=== PATIENT | male | born 1985 | race American Indian/Alaskan Native ===

== ENCOUNTER 2017-10-03 11:02 | Emergency (ER) | payer SELFPAY ==
[2017-10-03] MEDS ORDERED: ZOFRAN ONE (11:16)
[2017-10-03] MEDS ORDERED: TORADOL ONE (11:16)
[2017-10-03] MEDS ORDERED: SUBLIMAZE ONE (11:16)
[2017-10-03] MEDS ORDERED: TORADOL IV ONE (11:18)
[2017-10-03] MEDS ORDERED: SUBLIMAZE IV ONE ×2 (11:18→12:00)
[2017-10-03] MEDS ORDERED: ZOFRAN IV ONE (11:18)
--- NOTE | 2017-10-03 11:28 | Emergency Department Report ---
HPI - General Chief Complaint: Extremity Injury, Upper Time Seen by Provider: 10/03/17 11:16 - HPI HPI: Room 21 The patient is a 32-year-old male presenting with a chief complaint of right shoulder pain. The patient states he fell backwards and tried to break his fall by putting his arms back and his right shoulder popped out of place. The patient states his right shoulder has been dislocated several times in the past. The patient gets his pain_10/10. The patient states he has not eaten or drank anything today. Location: Right shoulder Duration: Just prior to arrival Quality: Pain Severity: 11/27 Modifying factors: [see above] Context: [see above] Mode of transportation: [not driving] ED Past Medical Hx - Past Medical History Previous Medical History?: No - Surgical History Past Surgical History?: Yes Additional Surgical History: plate left hip, terrie right femur - Family History Family history: no significant - Social History Smoking Status: Current Every Day Smoker (1/2 pack per day) Substance Use Type: None (denies illicit drug use) - Medications Home Medications: Home Medications Medication Instructions Recorded Confirmed Last Taken Type Cyclobenzaprine [Flexeril] 10 mg PO TID PRN #14 tablet 10/03/17 Unknown Rx HYDROcodone/APAP 5-325 [Dearborn 1 each PO Q6HR PRN #10 tablet 10/03/17 Unknown Rx 5/325] Ibuprofen [Motrin 800 MG tab] 800 mg PO Q8HR PRN #20 tablet 10/03/17 Unknown Rx ED Review of Systems ROS: Stated complaint: RIGHT SHOULDER DISLOCATED Other details as noted in HPI Musculoskeletal: arthralgia, myalgia Physical Exam - Physical Exam Physical Exam: GENERAL: The patient is well-developed well-nourished male sitting on stretcher with obvious right shoulder deformity appeared to be in moderate discomfort. [] HEENT: Normocephalic. Atraumatic. Extraocular motions are intact. Patient has moist mucous membranes. NECK: Supple. Trachea midline CHEST/LUNGS: Clear to auscultation. There is no respiratory distress noted. HEART/CARDIOVASCULAR: Regular. There is no tachycardia. There is no gallop rub or murmur. ABDOMEN: Abdomen is soft, nontender. Patient has normal bowel sounds. There is no abdominal distention. SKIN: There is no rash. There is no edema. There is no diaphoresis. NEURO: The patient is awake, alert, and oriented. The patient is cooperative. The patient has no focal neurologic deficits. The patient has normal speech. Normal sensation to the dorsum of the right hand and the right shoulder. Patient able to move fingers without difficulty. MUSCULOSKELETAL: There is obvious deformity of the right shoulder - Orthopedic Joint Reduction Joint #1 Consent Obtained: verbal consent Time Out Performed: Yes Side: right Joint Reduction Location: shoulder Analgesia: moderate sedation Shoulder Technique Used (if applicable): other (modified Mari) Technique Used: traction/counter-traction Post-Reduction Neuro Exam: intact Post-Reduction Vascular Exam: intact Post Reduction X-Ray Obtained: Yes Post Reduction X-Ray Results: reduced Splint Applied: Yes (shoulder immobilizer) Patient Tolerated Procedure: well ED Medical Decision Making - Radiology Data Radiology results: image reviewed (right shoulder x-ray #1, right shoulder x- ray #2) interpreted by me: Right shoulder x-ray #1-humeral head dislocation. No fracture Right shoulder x-ray #2-dislocation resolved. No fracture - Differential Diagnosis shoulder dislocation, humerus fracture Critical care attestation.: If time is entered above; I have spent that time in minutes in the direct care of this critically ill patient, excluding procedure time. ED Disposition Clinical Impression: Anterior dislocation of right shoulder, Acute shoulder pain Disposition: TO HOME OR SELFCARE Is pt being admited?: No Does the pt Need Aspirin: No Condition: Stable Instructions: Shoulder Dislocation (ED) Additional Instructions: Return to the emergency department immediately should you develop worsening symptoms, fever, inability to tolerate food or liquid or any other concerns. Prescriptions: Cyclobenzaprine [Flexeril] 10 mg PO TID PRN #14 tablet PRN Reason: Muscle Spasm HYDROcodone/APAP 5-325 [Dearborn 5/325] 1 each PO Q6HR PRN #10 tablet PRN Reason: Pain Ibuprofen [Motrin 800 MG tab] 800 mg PO Q8HR PRN #20 tablet PRN Reason: Pain, Moderate (4-6) Referrals: YOHAN SINGH MD [Staff Physician] - 3-5 Days (Dr. Singh is an orthopedic surgeon. Please follow up with him for further evaluation) Time of Disposition: 12:01
[2017-10-03] MEDS ORDERED: AMIDATE IV ONE ×2 (11:33→12:04)
--- NOTE | 2017-10-03 12:00 | XRay Report ---
RIGHT SHOULDER, 3 VIEWS: HISTORY: Pain after fall. An anterior, inferior dislocation is identified at the right glenohumeral joint. No obvious fracture. The remainder of the examination is within normal limits. IMPRESSION: Right shoulder dislocation.
--- NOTE | 2017-10-03 12:01 | XRay Report ---
RIGHT SHOULDER, ONE VIEW History: Postreduction film. Findings: The right shoulder dislocation has been reduced since earlier today at 1123 hrs. Alignment is anatomic. No obvious fracture on single view. Impression: Anatomic alignment at the right shoulder.
[2017-10-03 12:27] VITALS: BP 150/102
== END 2017-10-03 12:45 | disposition home or self-care (01) ==
LOC: ED 11:02
DX: S43.004A Unspecified dislocation of right shoulder joint, initial encounter (principal); F17.200 Nicotine dependence, unspecified, uncomplicated; Z91.041 Radiographic dye allergy status; W19.XXXA Unspecified fall, initial encounter; Y93.89 Activity, other specified; Y99.8 Other external cause status; Y92.89 Other specified places as the place of occurrence of the external cause
CPT/HCPCS: 23650; 29105; 73020; 73030; 96374; 96375; 96376; 99284; J1885; J2405; J3010

== ENCOUNTER 2020-01-12 05:10 | Emergency (ER) | payer SELFPAY ==
[2020-01-12] MEDS ORDERED: ONDANSETRON 4 MG/2 ML INJ IV ONE ×2 (05:43→07:28)
[2020-01-12] MEDS ORDERED: MORPHINE 4 MG/1 ML INJ IV ONE (05:43)
[2020-01-12] MEDS ORDERED: SODIUM CHLORIDE 0.9% 1000 ML 1,000 ML IV ONE (05:43)
--- NOTE | 2020-01-12 05:53 | Emergency Department Report ---
<MEGHNA ROLDAN - Last Filed: 01/12/20 05:50> ED Abdominal Pain HPI - General Chief Complaint: Abdominal Pain Stated Complaint: ABD PAIN Time Seen by Provider: 01/12/20 05:33 Source: patient, EMS Mode of arrival: Ambulatory Limitations: No Limitations - History of Present Illness Initial Comments: Patient is a 34-year-old male presents emergency room with complaints of upper abdominal pain that began just prior to arrival. He states the pain is a sharp stabbing pain. He has associated nausea, vomiting, diarrhea, chills. He denies any dysuria, hematochezia, hematemesis, melena, pain or swelling in the testicles. He denies any past medical history. He denies any allergies to medications. He denies any iodine allergy. He endorses tobacco use. He states he occasionally drinks alcohol. He denies marijuana use. He denies any other drug use. He states that the last thing he ate was a sloppy Curtis. Denies any sick contacts or anyone else getting sick after eating. - Related Data Previous Rx's Medication Instructions Recorded Last Taken Type Cyclobenzaprine [Flexeril] 10 mg PO TID PRN #14 tablet 10/03/17 Unknown Rx Ibuprofen [Motrin 800 MG tab] 800 mg PO Q8HR PRN #20 tablet 10/03/17 Unknown Rx Famotidine [Pepcid] 40 mg PO QHS #30 tablet 01/12/20 Unknown Rx HYDROcodone/APAP 5-325 [[place]ster 1 each PO Q6HR PRN #10 tablet 01/12/20 Unknown Rx 5-325 mg TAB] Ondansetron [Zofran Odt] 4 mg PO Q8HR PRN #15 tab.rapdis 01/12/20 Unknown Rx Allergies Allergy/AdvReac Type Severity Reaction Status Date / Time iodine Allergy Rash Verified 10/03/17 11:13 ED Review of Systems Comment: All other systems reviewed and negative ED Past Medical Hx - Past Medical History Previous Medical History?: No - Surgical History Additional Surgical History: plate left hip, terrie right femur - Social History Smoking Status: Current Every Day Smoker Substance Use Type: None - Medications Home Medications: Home Medications Medication Instructions Recorded Confirmed Last Taken Type Cyclobenzaprine [Flexeril] 10 mg PO TID PRN #14 tablet 08/16/18 Unknown Rx Ibuprofen [Motrin 800 MG tab] 800 mg PO Q8HR PRN #20 tablet 10/03/17 Unknown Rx Famotidine [Pepcid] 40 mg PO QHS #30 tablet 01/12/20 Unknown Rx HYDROcodone/APAP 5-325 [[place] 1 each PO Q6HR PRN #10 tablet 01/12/20 Unknown Rx 5-325 mg TAB] Ondansetron [Zofran Odt] 4 mg PO Q8HR PRN #15 tab.rapdis 01/12/20 Unknown Rx ED Physical Exam - General Limitations: No Limitations General appearance: alert, other (in moderate distress secondary to pain) - Head Head exam: Present: atraumatic, normocephalic - Eye Eye exam: Present: normal appearance - ENT ENT exam: Present: mucous membranes dry - Respiratory Respiratory exam: Present: normal lung sounds bilaterally. Absent: respiratory distress, wheezes, rales, rhonchi, stridor, chest wall tenderness, accessory muscle use, decreased breath sounds, prolonged expiratory - Cardiovascular Cardiovascular Exam: Present: regular rate, normal rhythm, normal heart sounds. Absent: systolic murmur, diastolic murmur, rubs, gallop - GI/Abdominal GI/Abdominal exam: Present: soft, tenderness (generalized upper), guarding (voluntary), normal bowel sounds. Absent: distended, rebound, rigid - Neurological Exam Neurological exam: Present: alert, oriented X3 - Psychiatric Psychiatric exam: Present: normal affect, normal mood - Skin Skin exam: Present: warm, dry, intact ED Disposition Clinical Impression: Upper abdominal pain, Leukocytosis, Gastritis Disposition: - TO HOME OR SELFCARE Condition: Stable Instructions: Gastritis, Adult, [id number], Abdominal Pain, Adult, [id number] Additional Instructions: Take the pepcid, norco and zofran as prescribed. Recommend close follow-up with your primary care doctor will be given to you on your discharge instructions if you do not already have 1. Return to the ER if your pain worsens, especially if it localizes to your right lower abdomen, with associated fever. Prescriptions: Famotidine [Pepcid] 40 mg PO QHS #30 tablet HYDROcodone/APAP 5-325 [Chester 5-325 mg TAB] 1 each PO Q6HR PRN #10 tablet PRN Reason: Pain Ondansetron [Zofran Odt] 4 mg PO Q8HR PRN #15 tab.rapdis PRN Reason: Vomiting Referrals: LUPIS HAYNES MD [Staff Physician] - 3-5 Days <MERVAT JAIME - Last Filed: 01/12/20 13:38> ED Review of Systems ROS: Stated complaint: ABD PAIN Other details as noted in HPI ED Course Vital Signs 01/12/20 01/12/20 01/12/20 05:20 07:01 07:40 Temperature 97.4 F L Pulse Rate 99 H Respiratory 18 18 18 Rate Blood Pressure 135/71 O2 Sat by Pulse 100 Oximetry 01/12/20 01/12/20 10:02 11:31 Temperature Pulse Rate 82 Respiratory 18 14 Rate Blood Pressure 122/68 O2 Sat by Pulse 98 Oximetry - Reevaluation(s) Reevaluation #1: 01/12/20 07:41 Case turned over to me from Meghna Roldan PA-C; Case and labs reviewed. CT Abdomen and pelvis pending. Pt appears uncomfortable. He states he is having pain 9/10 in upper abdomen and has since vomitted after initial round of medications. Pt did admit his pain and nausea did improve after morphine and zofran. He did admit to drinking water from the sink while waiting for CT. He states he thought that drinking water would help him vomit which would therefore stop his pain but instead he vomitted 2 (bilious) and pain in upper abd got worse. Pt with ttp upper abd but more so epigastric and LUQ with voluntary guarding but no rebound or rigidity. No abdominal distension. Dilaudid 1mg IV ordered as well as zofran 4mg IV. Pt instructed to remain NPO until after CT. Reevaluation #2: 01/12/20 08:[address] about [address] report of abdomen and pelvis. He states he sees some dilation down in area of appendix though he cannot truly identify the appendix and he does not see any secondary signs of appendicitis such as inflammation but he is slightly suspicious and if there is concern for appendicitis on exam he recommend repeat CT with oral contrast. Pt does have mild elevated white count, and patients with complaint of pain despite Dilaudid, repeat abdominal exam shows tenderness again in the upper abdomen more so epigastric but he does report mild tenderness in the right lower quadrant though without guarding or rebound in the right lower quadrant. 01/12/20 08:[address] Brown, he agree will just repeat CT with oral contrast. IV pepcid, IV toradol ordered. Pt aware that he will need to drink contrast and he has agreed to do so. Reevaluation #3: 01/12/20 12:45 Patient currently resting comfortably. He states that he feels much better after Toradol, and IV Pepcid. Repeat abdominal exam/soft nontender abdomen. Repeat CT reviewed, majority of, oral contrast remaining patient stomach, radiologist reported appendix not identified, trace fluid in the pelvis. Discussed case with Dr. Jason Kruger and he recommend consulting general surgeon. 01/12/20 12:46 Reevaluation #4: 01/12/20 13:13 1311 -- Discussed case with Dr Echols. She recommend leaving the decision to the patient since his CT is unclear, and he has a mild elevated white count, but he does now report feeling much better with a soft nontender abdomen and he is afebrile with normal vital signs. Recommend talking to the patient and decide whether he wants to be admitted for observation, or if he feels well enough to go home after a p.o. challenge. Discussed the decision for admit for observation or going home with patient. Patient states that he feels much better and would rather go home. He has agreed to do a p.o. fluid challenge before he gets discharged. 01/12/20 13:30 Dr Echols can and saw and examined patient. She report that pt adomen is soft and non tender and pt reported to her that he feels better. He was able to tolerate juice without issues. She agrees symptoms and PE no typical of appendicitis. Pt will be d/jayde home but with precautions to return to ED if his symptoms worsens/changes and he develops fever/chills ED Medical Decision Making - Lab Data Result diagrams: 01/12/20 06:04 01/12/20 06:04 - Radiology Data Radiology results: report reviewed Patient: ERIN ANGULO MR#: [id number] : 1985 Acct:[id number] Age/Sex: 34 / M ADM Date: 01/12/20 Loc: ED Attending Dr: Ordering Physician: FARTUN ZAMAN Date of Service: 01/12/20 Procedure(s): CT abdomen pelvis w con Accession Number(s): [id number] cc: FARTUN ZAMAN CT ABDOMEN AND PELVIS WITH CONTRAST HISTORY: Pt complains of abd pain with nausea, vomiting and diarrhea COMPARISON: None. TECHNIQUE: Axial CT images were obtained through the abdomen and pelvis after 100 cc of Omnipaque 300 intravenously. Sagittal and coronal reformatted images. All CT scans at this location are performed using CT dose reduction for ALARA by means of automated exposure control. FINDINGS: CT ABDOMEN: Lung Bases: Clear. Liver: The liver is mildly enlarged. No parenchymal disease or focal lesion is appreciated. The hepatic vasculature is patent. Biliary: No significant abnormality. Spleen: No significant abnormality. Unenlarged. Pancreas: No significant abnormality. Adrenals: No significant abnormality. Kidneys: No significant abnormality. Lymphatics: No lymphadenopathy. Vasculature: No significant abnormality. Bowel/Peritoneum: No significant abnormality. No free air. No free fluid. The appendix is not confidently identified. There is a tubular structure in the right lower quadrant measuring up to 10 mm in diameter. It is unclear if this represents a dilated appendix or fluid in a distal small bowel loop. There is no surrounding inflammation. Please correlate with the patient's clinical presentation and surgical history. CT PELVIS: : No significant abnormality. Osseous Structures: No significant abnormality. Additional Findings: None IMPRESSION: Mild hepatomegaly. Nonvisualization of the appendix. There is suggestion of a possible dilated appendix in the right lower quadrant. This could also represent a fluid-filled distal small bowel loop. There are no surrounding inflammatory changes or secondary findings of acute appendicitis. If further evaluation is needed, consider repeat CT with oral contrast to better identify the appendix. These findings were discussed with Mervat in the fast track at 0845 hours EST. Signer Name: Fadi Magallon Jr, MD Signed: 01/12/2020 8:50 AM Workstation Name: [id number] Transcribed By: TTR Dictated By: FADI MAGALLON JR, MD Electronically Authenticated By: FADI MAGALLON JR, MD Signed Date/Time: 01/12/20 0850 Referring Physician: MERVAT JAIME Patient Name: ERIN ANGULO Date of : 1985 Sex: Male Report Date: 2020-01-12 Report Status: Finalized [facility] [address] [place] [address] Cat Scan Report Signed Patient: ERIN ANGULO MR#: [id number] : 1985 Acct:[id number] Age/Sex: 34 / M ADM Date: 01/12/20 Loc: ED Attending Dr: Ordering Physician: MERVAT JAIME Date of Service: 01/12/20 Procedure(s): CT abdomen pelvis wo con Accession Number(s): [id number] cc: MERVAT JAIME CT abdomen pelvis wo con INDICATION: Severe abdominal pain. Evaluate for appendicitis. TECHNIQUE: All CT scans at this location are performed using the following dose modulation technique: Automated exposure control. CONTRAST: Oral contrast only. All the oral contrast remains in the patient's stomach and is of no benefit for diagnostic purposes. Residual contrast material is seen at the kidneys and bladder. COMPARISON: Earlier the same day. CT ABDOMEN: The parenchymal organs are unremarkable in appearance. Negative for abdominal mass, fluid or inflammation. The bowel is not dilated or thickened. CT PELVIS: The appendix is not identified with certainty. The previously described area at the right lower quadrant is not well identified due to the absence of contrast. Trace pelvic free fluid is noted. IMPRESSION: 1. The appendix is not identified. 2. Trace pelvic free fluid. Signer Name: Cheikh Reed MD Signed: 01/12/2020 12:24 PM Workstation Name: [id number] Transcribed By: ES Dictated By: Cheikh eRed MD Electronically Authenticated By: Cheikh Reed MD Signed Date/Time: 01/12/20 1224 Critical care attestation.: If time is entered above; I have spent that time in minutes in the direct care of this critically ill patient, excluding procedure time. ED Disposition Is pt being admited?: No Does the pt Need Aspirin: No Time of Disposition: 13:37
[2020-01-12 06:32] LABS: Basophils % (Auto) 0.2 % (0.0-1.8); Eosinophils # (Auto) 0.1 K/mm3 (0.0-0.4); Eosinophils % (Auto) 0.6 % (0.0-4.3); Hematocrit 40.6 % (35.5-45.6); Hemoglobin 12.9 gm/dl (11.8-15.2); Lymphocytes % (Auto) 7.8 % (13.4-35.0); Mean Corpuscular HGB Conc 32 % (32-34); Mean Corpuscular Volume 90 fl (84-94); Monocytes # (Auto) 0.6 K/mm3 (0.0-0.8); Monocytes % (Auto) 4.6 % (0.0-7.3); Platelet Count 234 K/mm3 (140-440); Red Blood Count 4.52 M/mm3 (3.65-5.03); Red Cell Distribution Width 13.8 % (13.2-15.2)
[2020-01-12 06:49] LABS: Alanine Aminotransferase 11 units/L (7-56); Albumin 4.6 g/dL (3.9-5); BUN/Creatinine Ratio 17; Blood Urea Nitrogen 20 mg/dL (9-20); Calcium 9.8 mg/dL (8.4-10.2); Hemolysis Index 7
[2020-01-12] MEDS ORDERED: HYDROmorphone 1 MG/1 ML INJ IV ONE (07:28)
--- NOTE | 2020-01-12 08:54 | Cat Scan Report ---
CT ABDOMEN AND PELVIS WITH CONTRAST HISTORY: Pt complains of abd pain with nausea, vomiting and diarrhea COMPARISON: None. TECHNIQUE: Axial CT images were obtained through the abdomen and pelvis after 100 cc of Omnipaque 300 intravenously. Sagittal and coronal reformatted images. All CT scans at this location are performed using CT dose reduction for ALARA by means of automated exposure control. FINDINGS: CT ABDOMEN: Lung Bases: Clear. Liver: The liver is mildly enlarged. No parenchymal disease or focal lesion is appreciated. The hepat ic vasculature is patent. Biliary: No significant abnormality. Spleen: No significant abnormality. Unenlarged. Pancreas: No significant abnormality. Adrenals: No significant abnormality. Kidneys: No significant abnormality. Lymphatics: No lymphadenopathy. Vasculature: No significant abnormality. Bowel/Peritoneum: No significant abnormality. No free air. No free fluid. The appendix is not confide ntly identified. There is a tubular structure in the right lower quadrant measuring up to 10 mm in di ameter. It is unclear if this represents a dilated appendix or fluid in a distal small bowel loop. Th ere is no surrounding inflammation. Please correlate with the patient's clinical presentation and yaa gical history. CT PELVIS: : No significant abnormality. Osseous Structures: No significant abnormality. Additional Findings: None IMPRESSION: Mild hepatomegaly. Nonvisualization of the appendix. There is suggestion of a possible dilated appendix in the right low er quadrant. This could also represent a fluid-filled distal small bowel loop. There are no surroundi ng inflammatory changes or secondary findings of acute appendicitis. If further evaluation is needed, consider repeat CT with oral contrast to better identify the appendix. These findings were discussed with Mervat in the fast track at 0845 hours EST. Signer Name: Fadi Magallon Jr, MD Signed: 01/12/2020 8:50 AM Workstation Name: [id number]
[2020-01-12] MEDS ORDERED: FAMOTIDINE 20 MG/2 ML INJ IV ONE (08:58)
[2020-01-12] MEDS ORDERED: KETOROLAC 30 MG/1 ML INJ IV ONE (08:58)
[2020-01-12 11:34] VITALS: BP 122/68
--- NOTE | 2020-01-12 12:28 | Cat Scan Report ---
CT abdomen pelvis wo con INDICATION: Severe abdominal pain. Evaluate for appendicitis. TECHNIQUE: All CT scans at this location are performed using the following dose modulation technique: Automated exposure control. CONTRAST: Oral contrast only. All the oral contrast remains in the patient's stomach and is of no be nefit for diagnostic purposes. Residual contrast material is seen at the kidneys and bladder. COMPARISON: Earlier the same day. CT ABDOMEN: The parenchymal organs are unremarkable in appearance. Negative for abdominal mass, fluid or inflammation. The bowel is not dilated or thickened. CT PELVIS: The appendix is not identified with certainty. The previously described area at the right lower quadrant is not well identified due to the absence of contrast. Trace pelvic free fluid is note d. IMPRESSION: 1. The appendix is not identified. 2. Trace pelvic free fluid. Signer Name: Cheikh Reed MD Signed: 01/12/2020 12:24 PM Workstation Name: [id number]
[2020-01-12 13:32] LABS: Bilirubin,Urine NEG (Negative); Blood,Urine NEG (Negative); Color,Urine Yellow (Yellow); Mucus,Urine 3+ /HPF; Urobilinogen,Urine < 2.0 mg/dL (<2.0)
--- NOTE | 2020-01-12 15:12 | Consultation ---
History of Present Illness Consult date: 01/12/20 Reason for consult: abdominal pain - History of present illness History of present illness: 34 year old male presented to ER this morning after waking up abruptly with 10/10 abdominal pain that was most concentrated in the epigastric area. He says that he had some nausea and vomiting. He denies ever having the pain before and felt well before going to sleep. He had two CT scans that could not visualize the appendix and showed no signs of inflammation in the RLQ. He did have a small amount of fluid in his pelvis. After some morphine, pepcid and toradol he says he almost immediately felt better and currently denies any abdominal pain, nausea or vomiting. He drank 2 cups of juice without difficulty. Past History Past Medical History: No medical history Past Surgical History: Other (surgery on his legs for an injury when he was younger) Social history: smoking. denies: alcohol abuse Medications and Allergies Allergies Allergy/AdvReac Type Severity Reaction Status Date / Time iodine Allergy Rash Verified 10/03/17 11:13 Home Medications Medication Instructions Recorded Confirmed Last Taken Type Cyclobenzaprine [Flexeril] 10 mg PO TID PRN #14 tablet 10/03/17 Unknown Rx Ibuprofen [Motrin 800 MG tab] 800 mg PO Q8HR PRN #20 tablet 10/03/17 Unknown Rx Famotidine [Pepcid] 40 mg PO QHS #30 tablet 01/12/20 Unknown Rx HYDROcodone/APAP 5-325 [Bapchule 1 each PO Q6HR PRN #10 tablet 01/12/20 Unknown Rx 5-325 mg TAB] Ondansetron [Zofran Odt] 4 mg PO Q8HR PRN #15 tab.rapdis 01/12/20 Unknown Rx Review of Systems - Constitutional no weight loss, no anorexia - Cardiovascular no chest pain - Respiratory no cough - Gastrointestinal no abdominal pain, no nausea, no vomiting, no diarrhea - Genitourinary no dysuria Exam Vital Signs Temp Pulse Resp BP Pulse Ox 97.4 F L 99 H 18 135/71 100 01/12/20 05:20 01/12/20 05:20 01/12/20 05:20 01/12/20 05:20 01/12/20 05:20 - General physical appearance Positive: well developed, well nourished, no distress, no pain - Respiratory Positive: normal expansion, normal respiratory effort - Cardiovascular Heart Sounds: Present: S1 & S2 - Extremities Extremities: no ischemia - Abdomen Abdomen: Present: other (tattoos, flat, soft, non tender, no guarding or rebound) Results - Labs 01/12/20 06:04 01/12/20 06:04 Abnormal lab results 01/12/20 01/12/20 01/12/20 Range/Units 06:04 06:04 Unknown WBC 13.2 H (4.5-11.0) K/mm3 Lymph % (Auto) 7.8 L (13.4-35.0) % Lymph # (Auto) 1.0 L (1.2-5.4) K/mm3 Seg Neutrophils % 86.8 H (40.0-70.0) % Seg Neutrophils # 11.4 H (1.8-7.7) K/mm3 Glucose 193 H (75-100) mg/dL Ur Specific [place] 1.060 H (1.003-1.030) Urine WBC (Auto) 11.0 H (0.0-6.0) /HPF Diabetes panel 01/12/20 Range/Units 06:04 Sodium 138 (137-145) mmol/L Potassium 3.9 (3.6-5.0) mmol/L Chloride 98.7 (98-107) mmol/L Carbon Dioxide 23 (22-30) mmol/L BUN 20 (9-20) mg/dL Creatinine 1.2 (0.8-1.3) mg/dL Glucose 193 H (75-100) mg/dL Calcium 9.8 (8.4-10.2) mg/dL AST 19 (5-40) units/L ALT 11 (7-56) units/L Alkaline Phosphatase 94 (35-129) units/L Total Protein 7.4 (6.3-8.2) g/dL Albumin 4.6 (3.9-5) g/dL Calcium panel 01/12/20 Range/Units 06:04 Calcium 9.8 (8.4-10.2) mg/dL Albumin 4.6 (3.9-5) g/dL Pituitary panel 01/12/20 Range/Units 06:04 Sodium 138 (137-145) mmol/L Potassium 3.9 (3.6-5.0) mmol/L Chloride 98.7 (98-107) mmol/L Carbon Dioxide 23 (22-30) mmol/L BUN 20 (9-20) mg/dL Creatinine 1.2 (0.8-1.3) mg/dL Glucose 193 H (75-100) mg/dL Calcium 9.8 (8.4-10.2) mg/dL Adrenal panel 01/12/20 Range/Units 06:04 Sodium 138 (137-145) mmol/L Potassium 3.9 (3.6-5.0) mmol/L Chloride 98.7 (98-107) mmol/L Carbon Dioxide 23 (22-30) mmol/L BUN 20 (9-20) mg/dL Creatinine 1.2 (0.8-1.3) mg/dL Glucose 193 H (75-100) mg/dL Calcium 9.8 (8.4-10.2) mg/dL Total Bilirubin 0.70 (0.1-1.2) mg/dL AST 19 (5-40) units/L ALT 11 (7-56) units/L Alkaline Phosphatase 94 (35-129) units/L Total Protein 7.4 (6.3-8.2) g/dL Albumin 4.6 (3.9-5) g/dL - Imaging CT scan - abdomen: report reviewed, image reviewed CT scan - pelvis: report reviewed, image reviewed Assessment and Plan 34 year old male with acute abdominal pain that has no resolved of unclear benedict ology. Ddx: gastritis, gastro-enteritis, appendicitis unlikely as clinical course does not correlate. Afebrile and stable. CT scan does not show any definitive pathological findings. No surgical intervention planned at this time. Pt says he would like to go home because he feels fine. Explained to him length that if the pain or symptoms return her should come back to the ER and additional work up can be done. He expressed understanding.
== END 2020-01-12 14:16 | disposition home or self-care (01) ==
LOC: ED 05:10
DX: D72.828 Other elevated white blood cell count (principal); K29.60 Other gastritis without bleeding; Z91.09 Other allergy status, other than to drugs and biological substances
CPT/HCPCS: 36415; 74176; 74177; 80053; 81001; 83690; 85025; 87086; 96361; 96374; 96375; 96376; 99284; J1170; J1885; J2270; J2405; J7030; Q9967